=== PATIENT | male | born 1995 | race African-American/Black ===

== ENCOUNTER 2017-10-18 03:56 | Emergency (ER) | payer OTHER ==
[2017-10-18 04:34] LABS: BASO % 0.3 % (0.0-1.0); EOS # 0.1 10^3/uL (0.0-0.50); EOS % 0.9 % (0.0-3.0); HEMATOCRIT 48.3 % (42.0-52.0); HEMOGLOBIN 15.5 g/dl (14.0-18.0); IMMATURE GRANULOCYTE % 0.3 % (0-3.0); LYMPH # 2.6 10^3/uL (1.5-6.5); LYMPH % 38.3 % (24.0-44.0); MEAN CORPUSCULAR HEMOGLOBIN 31.2 pg (27.0-33.0); MEAN CORPUSCULAR HGB CONC 32.1 g/dl (32.0-36.5); MEAN CORPUSCULAR VOLUME 97.2 fl (80.0-96.0); MONO # 0.7 10^3/uL (0.0-0.8); MONO % 10.7 % (0.0-5.0); NEUTROPHILS # 3.3 10^3/uL (1.8-7.7); NEUTROPHILS % 49.5 % (36.0-66.0); RED BLOOD COUNT 4.97 10^6/uL (4.30-6.10); RED CELL DISTRIBUTION WIDTH 11.9 % (11.5-14.5); WHITE BLOOD COUNT 6.7 10^3/uL (4.0-10.0)
[2017-10-18] MEDS: NS 1,000 ML IV (04:41)
[2017-10-18 04:55] LABS: POS COUNT POS FLAG
[2017-10-18 05:06] LABS: AMPHETAMINES LEVEL URINE NEGATIVE (NEGATIVE); BARBITURATES URINE NEGATIVE (NEGATIVE); BENZODIAZEPINES URINE NEGATIVE (NEGATIVE); CANNABINOIDS URINE NEGATIVE (NEGATIVE); COCAINE METABOLITE URINE NEGATIVE (NEGATIVE); METHADONE URINE NEGATIVE (NEGATIVE); OPIATES URINE NEGATIVE (NEGATIVE); PHENCYCLIDINE URINE NEGATIVE (NEGATIVE)
[2017-10-18 05:22] LABS: ETHYL ALCOHOL (ETHANOL) 0.283 % (0.000-0.010)
[2017-10-18 05:26] LABS: ALBUMIN 3.8 GM/DL (3.2-5.2); ALBUMIN/GLOBULIN RATIO 1.12 (1.00-1.93); ALKALINE PHOSPHATASE 77 U/L (45-117); ALT/SGPT 28 U/L (12-78); ANION GAP 6 MEQ/L (8-16); AST/SGOT 42 U/L (7-37); BILIRUBIN,DIRECT 0.2 MG/DL (0.0-0.2); BILIRUBIN,TOTAL 0.4 MG/DL (0.2-1.0); BLOOD UREA NITROGEN 13 MG/DL (7-18); CALCIUM LEVEL 8.1 MG/DL (8.5-10.1); CARBON DIOXIDE LEVEL 29 MEQ/L (21-32); CHLORIDE LEVEL 110 MEQ/L (98-107); CREATININE FOR GFR 1.19 MG/DL (0.70-1.30); GLUCOSE, FASTING 105 MG/DL (70-100); SODIUM LEVEL 145 MEQ/L (136-145); THYROID STIMULATING HORMONE 0.423 uIU/ML (0.463-3.98); TOTAL PROTEIN 7.2 GM/DL (6.4-8.2)
[2017-10-18 06:23] LABS: OSMOLALITY SERUM 369 MOSM/KG (275-295)
== END 2017-10-18 08:41 | disposition home or self-care (01) ==
LOC: M ED 03:56
DX: F10.929 Alcohol use, unspecified with intoxication, unspecified (principal)
CPT/HCPCS: 93005

== ENCOUNTER 2018-06-12 03:53 | Emergency (ER) | payer OTHER ==
[2018-06-12] MEDS: KETOROLAC 60 MG/2 ML VIAL (J1885) IM (06:21)
== END 2018-06-12 07:11 | disposition home or self-care (01) ==
LOC: M ED 03:53
DX: G44.209 Tension-type headache, unspecified, not intractable (principal)
CPT/HCPCS: J1885

== ENCOUNTER 2018-12-04 15:48 | Emergency (ER) | payer OTHER ==
[~2018-12-04] VITALS: Ht 177.8 cm; Wt 75.0 kg
[2018-12-04] MEDS ORDERED: LIDOCAINE 1% MDV 20ML VIAL As Ordered ONE (18:10)
[2018-12-04] MEDS ORDERED: LIDOCAINE 1% MDV 20ML VIAL SC ONE (18:15)
[2018-12-04] MEDS ORDERED: CYCL10TA PO (18:20)
[2018-12-04] MEDS ORDERED: NAPR-837 PO (18:20)
[2018-12-04 18:24] VITALS: BP 143/90
== END 2018-12-04 18:27 | disposition home or self-care (01) ==
LOC: M ED 15:48
DX: S16.1XXA Strain of muscle, fascia and tendon at neck level, initial encounter (principal); X58.XXXA Exposure to other specified factors, initial encounter; Y92.9 Unspecified place or not applicable; Y93.B9 Activity, other involving muscle strengthening exercises; Y99.9 Unspecified external cause status

== ENCOUNTER 2020-03-26 17:56 | Emergency (ER) | payer OTHER ==
[~2020-03-26 17:56] MED LIST: CYCL-707 PO; NAPR-837 PO
[2020-03-26] MEDS ORDERED: methocarbamoL 750 MG TAB ONE (18:45)
[2020-03-26] MEDS ORDERED: KETOROLAC 60MG 2ML VIAL ONE (18:45)
== END 2020-03-26 18:40 | disposition home or self-care (01) ==
LOC: M ED 17:56
DX: S16.1XXA Strain of muscle, fascia and tendon at neck level, initial encounter (principal); X50.0XXA Overexertion from strenuous movement or load, initial encounter; Y92.89 Other specified places as the place of occurrence of the external cause; Y93.B3 Activity, free weights; Y99.8 Other external cause status
CPT/HCPCS: 96372; 99282; J1885

== ENCOUNTER 2020-03-28 21:53 | Emergency (ER) | payer OTHER ==
[~2020-03-28] VITALS: Ht 177.8 cm; Wt 73.9 kg
[2020-03-28 21:53] VITALS: BP 153/91
[2020-03-29] MEDS ORDERED: KETOROLAC 60MG 2ML VIAL IM ONE (00:15)
--- NOTE | 2020-03-29 11:30 | REPVR ---
PROCEDURE INFORMATION: Exam: XR Right Shoulder Exam date and time: 03/29/2020 12:43 AM Age: 24 years old Clinical indication: Pain; Shoulder; Right; Additional info: Pain/injured lifting TECHNIQUE: Imaging protocol: XR Right shoulder. Views: 2 or more views. COMPARISON: No relevant prior studies available. FINDINGS: Bones/joints: No acute bony injury or malalignment. Soft tissues: Unremarkable soft tissues. IMPRESSION: No acute bony injury or malalignment. Electronically signed by: Kwadwo Zheng On 03/29/2020 11:30:22 AM
== END 2020-03-29 01:58 | disposition home or self-care (01) ==
LOC: M ED 21:53
DX: S46.911A Strain of unspecified muscle, fascia and tendon at shoulder and upper arm level, right arm, initial encounter (principal); X50.0XXA Overexertion from strenuous movement or load, initial encounter; Y92.9 Unspecified place or not applicable; Y93.B3 Activity, free weights; Y99.9 Unspecified external cause status
CPT/HCPCS: 73030; 99282; J1885